=== PATIENT | male | born 1975 | race Caucasian/White ===

== ENCOUNTER 2018-05-01 19:57 | Emergency (ER) | payer OTHER ==
[~2018-05-01] VITALS: Ht 185.4 cm; Wt 86.2 kg
[2018-05-01 20:21] LABS: ABSOLUTE NEUTROPHILS 4.1 thou/uL (1.4-8.2); BASOPHILS 0.8 % (0.0-2.0); EOSINOPHILS 1.9 % (0.0-3.0); HEMATOCRIT 41.7 % (42.0-52.0); HEMOGLOBIN 14.5 gm/dL (14.0-18.0); LYMPHOCYTES 27.9 % (24.0-44.0); MCH 30.7 pg (26.0-34.0); MCHC 34.9 g/dL (28.0-37.0); MCV 88.2 fL (80.0-100.0); MONOCYTES 8.2 % (1.0-8.0); PLATELET COUNT 216 thou/uL (150-400); POLYS 61.2 % (36.0-66.0); RBC 4.73 mil/uL (4.50-6.00); RDW 13.3 % (10.5-14.5); WBC 6.7 thou/uL (4.0-11.0)
[2018-05-01 20:29] LABS: ANION GAP 7 mmol/L (7-16); BUN 10 mg/dL (7-18); CALCIUM 8.7 mg/dL (8.5-10.1); CHLORIDE 102 mmol/L (98-107); CO2 32 mmol/L (21-32); CREATININE 1.1 mg/dL (0.7-1.3); GLUCOSE 99 mg/dL (74-106); POTASSIUM 3.6 mmol/L (3.5-5.1); SODIUM 141 mmol/L (136-145)
[2018-05-01 20:37] LABS: ALBUMIN 3.7 g/dL (3.4-5.0); SGOT 15 U/L (15-37); SGPT 20 U/L (30-65); TOTAL BILIRUBIN 0.5 mg/dL (<0.1-1.0); TOTAL PROTEIN 7.2 g/dL (6.4-8.2); TROPONIN-I <0.06 ng/mL (<0.06)
[2018-05-01 21:28] VITALS: BP 122/78
--- NOTE | 2018-05-02 08:08 | EKG ---
[address] [address] ELECTROCARDIOGRAM REPORT Name: VEENA HOLLOWAY Room #: DEP Janet#: [id number] ������������������ Admission: 05/01/18 ������������������ Attend Phys: Discharge: 05/01/18 ������������������ Date of : 79 Report #: [id number] ����������������������������������������������������������������� [id number] THIS REPORT FOR: //name// [facility] ED Test Date: 2018-05-01 Test Time: 20:30:30 Pat Name: VEENA HOLLOWAY Department: Room: Gender: M Proposal Writer: TSTORCK : 1975 Requested By: Russ Saldivar Order Number: [id number] MD: Saroj Lazcano Measurements Intervals [place] Rate: 65 P: 28 HI: 170 QRS: 0 QRSD: 95 T: 17 QT: 382 QTc: 398 Interpretive Statements Sinus rhythm No previous ECG available for comparison Electronically Signed On 05-02-2018 8:08:00 CDT by Saroj Lazcano [email or web address] ��������������������������������������������� <ELECTRONICALLY SIGNED> ���������������������������������������� By: Saroj Lazcano MD ��������������������������������������������� 05/02/18 0808 29 MD ZHANE Tiwari
== END 2018-05-01 21:28 | disposition home or self-care (01) ==
LOC: ER 19:57
PROVIDERS: Physician Assistant
DX: R55 Syncope and collapse (principal); R42 Dizziness and giddiness; Z90.49 Acquired absence of other specified parts of digestive tract

== ENCOUNTER → 2018-12-25 | Outpatient (CLI) | payer OTHER | LOC: CAT 09:05 | DX: Z13.6 Encounter for screening for cardiovascular disorders (principal); E78.00 Pure hypercholesterolemia, unspecified; I25.10 Atherosclerotic heart disease of native coronary artery without angina pectoris ==